=== PATIENT | male | born 2000 ===

== ENCOUNTER 2025-03-18 14:14 | Emergency (ER) | payer SELFPAY ==
[2025-03-18 14:16] VITALS: BMI 18.4
--- NOTE | 2025-03-18 14:52 | PC.NURSE ---
PT CAME TO TRIAGE DESK AND STATED, I THINK WE'RE JUST GONNA LEAVE; WE'RE JUST GONNA GO BACK HOME. RN ATTEMPTED TO ASK PT TO WAIT FOR MEDICAL SCREENING EXAM WITH PROVIDER; PER PT, NO IT'S OK. WE'RE GONNA GO. PT SIGNED AMA FORM AT THIS TIME. PT'S COUSN AT BEDSIDE WITNESS.
== END 2025-03-18 14:53 | disposition left against medical advice (07) ==
LOC: SERX 14:58
PROVIDERS: Emergency Provider Emergency Medicine
DX: Z53.21 Procedure and treatment not carried out due to patient leaving prior to being seen by health care provider (principal)